=== PATIENT | female | born 1945 | race Caucasian/White ===

== ENCOUNTER 2016-10-10 05:19 | Inpatient (IN) | payer BC ==
[2016-10-07 17:45] LABS: BASOPHILS 0.3 %; BASOPHILS ABSOLUTE 0.02 10/3/uL (0.0-0.16); EOSINOPHILS 2.9 %; EOSINOPHILS ABSOLUTE 0.19 10/3/uL (0.0-0.53); HEMATOCRIT 41.2 % (36.0-48.0); IMMATURE GRANULOCYTES 0.2 %; IMMATURE GRANULOCYTES ABSOLUTE 0.01 10/3/uL (0.0-0.11); LYMPHOCYTES 34.1 %; LYMPHOCYTES ABSOLUTE 2.22 10/3/uL (0.67-4.30); MEAN CORPUSCULAR HEMOGLOB 31.8 pg (26.0-34.0); MEAN CORPUSCULAR VOLUME 93.6 fL (80-100); MEAN PLATELET VOLUME 11.6 fL (9.2-13.0); MONOCYTES 9.1 %; MONOCYTES ABSOLUTE 0.59 10/3/uL (0.21-1.20); NEUTROPHILS 53.4 %; NEUTROPHILS ABSOLUTE 3.48 10/3/uL (2.02-8.40); PLATELET COUNT 251 10/3/uL (150-400); RBC DISTRIBUTION WIDTH 13.1 % (12.0-16.0); WHITE BLOOD CELLS 6.5 10/3/uL (4.5-10.5)
[2016-10-07 17:46] LABS: MANUAL DIFF NO %
[2016-10-07 17:54] LABS: PROTIME (NOT ORD) 13.2 SEC (12.0-14.5)
[2016-10-07 18:04] LABS: A/G RATIO 1.4 (0.7-1.9); ALBUMIN 4.1 G/DL (3.5-5.0); ALKALINE PHOSPHATASE 66 U/L (45-117); BUN (BLOOD UREA NITROGEN) 13 MG/DL (6-23); CALCIUM, SERUM 9.5 MG/DL (8.5-10.4); CHLORIDE, SERUM 103 MMOL/L (96-112); CO2 (CARBON DIOXIDE) 29 MMOL/L (24-34); CREATININE 0.54 MG/DL (0.55-1.02); GFR AFRICAN AMERICAN 110 ML/MIN (>=60); GFR NON AFRICAN AMERICAN 95 ML/MIN (>=60); GLOBULIN 2.9 G/DL (2.5-4.1); GLUCOSE, SERUM 52 MG/DL (60-99); POTASSIUM, SERUM 3.7 MMOL/L (3.5-5.3); SGOT(AST) 20 U/L (5-40); SGPT(ALT) 27 U/L (5-65); SODIUM, SERUM 141 MMOL/L (135-148); TOTAL BILIRUBIN 0.5 MG/DL (0-1.2)
[2016-10-07 18:05] LABS: ASCORBIC ACID (UR NOT ORDER) NEG (NEG); BILIRUBIN, URINE NEGATIVE (NEG); KETONE, URINE NEGATIVE (NEG); LEUKOCYTE ESTERASE(NOT OR LARGE (NEG); WBC (NOT ORDERED) (RFLEX) 16 (0-5)
--- NOTE | ~2016-10-10 | OP ---
Record Of Operation [facility] [address] [place]. [address] NAME: MAIN BRAR : 45 STATUS : ADM IN [facility]#: [id number] AGE: 71 ADM/REG DATE : 10/10/16 MR#: [id number] REPORT SERV DATE: 10/11/16 DICTATED BY: AURY SILVA DATE: 10/10/16 REPORT STATUS : Draft TRANSCRIBED BY: MODDarian DATE: 10/10/16 DATE OF PROCEDURE: 10/10/2016 PREOPERATIVE DIAGNOSIS: Severe left knee degenerative joint disease. POSTOPERATIVE DIAGNOSIS: Severe left knee degenerative joint disease. OPERATION: Left posterior stabilized total knee replacement, cemented. SIDE: Left side. SIZE: See chart. ANESTHESIA: See chart. ESTIMATED BLOOD LOSS: About 10 mL. TOURNIQUET TIME: Approximately 1 hour and 10 minutes. COMPLICATIONS: None. SPECIMENS: Articular surfaces. PROCEDURE: The patient was appropriately identified and marked. The operative side agreed with the consent form and it was checked by all members of the surgical team. The patient was taken to the operating room and anesthesia was induced per the anesthesiologist. The patient was carefully transferred to the operating table without incident. The patient received appropriate prophylactic antibiotics and a Hou catheter was placed in the standard sterile technique. The patient was then carefully positioned, padded, prepped and draped in the normal sterile fashion. The operative leg had been appropriately identified and checked by all members of the operating team against the consent form and found to be the correct limb. The patient's lower extremity was then exsanguinated with an Timmy wrap and a tourniquet was inflated to 350 mm/Hg. Sharp dissection was carried out through a straight midline longitudinal incision and electrocautery through the fat. Sharp quad splitting approach was carried out between about the medial 10 percent of the tendon and the lateral 90 percent of the tendon and down around the medial aspect of the patella and then 1 cm medial to the tibial tubercle. The patella was carefully everted and the posterior fat pad was excised and gentle MCL elevation was carried out off the proximal medial tibia subperiosteally. IM guide was placed in the distal femur after using the appropriate drill. The distal femoral cutting guide was held with 2 pins and the distal cut made. Meniscal fragments and the ACL and the PCL were excised with electrocautery, carefully staying anterior to the posterior fat pad. The proximal tibial alignment guide was set appropriately and the proximal tibial cut made. Spacer block verified full extension with excellent mediolateral balance. Sizing guide was used to place 2 drill holes in the distal femur and the four-in-one cutting block was then placed, impacted and checked Record Of Operation [facility] [address] [place]. [address] NAME: MAIN BRAR : 45 STATUS : ADM IN PAT#: [id number] AGE: 71 ADM/REG DATE : 10/10/16 MR#: [id number] REPORT SERV DATE: 10/11/16 DICTATED BY: AURY SILVA DATE: 10/10/16 REPORT STATUS : Draft TRANSCRIBED BY: LINDA DATE: 10/10/16 to be sure it would not notch with an patria wing and it was held with 2 pins. The anterior cut, posterior cut, anterior chamfer and posterior chamfer cuts were made. The pins were removed and the block was removed. A posterior release was carried out with a curved 3/4 inch osteotome staying right on the bone posteriorly. The box-cut guide was then placed, impacted and held with 2 pins and a reciprocating saw was used to cut out the box. With the trial components in place, there was excellent medial/lateral balance. The patella was then measured with a caliper, cut first with an oscillating saw and then reamed with a patella reamer. With the trial patella in place, there was excellent patellar tracking. Rotation was marked on the tibia and the tibia prepared with a drill and stamp chisel. All surfaces were then copiously irrigated with pulsatile lavage, carefully dried and then vacuum-mixed cement was pressurized with a cement gun in a doughy phase. The tibial component was placed, impacted and excess cement was removed. The cement was then pressurized in the femur and placed on the posterior runners of the femoral component, which was placed, impacted and excess cement removed and the knee was brought out into extension on a trial spacer. The cement was then pressurized in the patella. Patellar component was then placed, clamped and excess cement was removed. Once all cement was hardened, the knee was taken through range of motion. Further extruded cement was removed with a small osteotome. Then based on the trial inserts, we decided on the actual insert, which was placed in the standard fashion and held with a locking mechanism. The knee was then copiously irrigated and then closed in a layered fashion over a medium Hemovac drain superolaterally with interrupted #1 in the deep fascia, 2-0 subcutaneous and roberta in the skin. The wounds were dressed sterilely and the tourniquet was deflated. The patient was then awakened and taken to the postanesthesia care unit without incident. All counts were correct at the end of the case. LISY/LINDA Sriniavs Silva M.D. / [id number] CC: Srinivas Silva M.D.
[~2016-10-10 05:19] MED LIST: AMLODIPINE/VALSARTAN; CLARIT10 PO; CO Q-10100 MG PO; EFFEX75 PO; GLUCOPHXR7 PO; LEVOTHYROXIN50 MCG PO; LIPITOR20 PO; MOBIC15 MG PO; NEUR100 PO; PRILOSEC40 MG PO
[2016-10-11 06:35] LABS: HEMATOCRIT 28.2 % (36.0-48.0); HEMOGLOBIN 9.6 g/dL (12.0-16.0)
[2016-10-11 06:42] LABS: INTERNATIONAL NORMAL RATI 1.2 UNITS (-); PROTIME (NOT ORD) 14.7 SEC (12.0-14.5)
[2016-10-11 07:01] LABS: BUN (BLOOD UREA NITROGEN) 15 MG/DL (6-23); CALCIUM, SERUM 9.1 MG/DL (8.5-10.4); CHLORIDE, SERUM 105 MMOL/L (96-112); CO2 (CARBON DIOXIDE) 26 MMOL/L (24-34); CREATININE 0.58 MG/DL (0.55-1.02); GFR AFRICAN AMERICAN 107 ML/MIN (>=60); GFR NON AFRICAN AMERICAN 93 ML/MIN (>=60); GLUCOSE, SERUM 114 MG/DL (60-99); POTASSIUM, SERUM 3.9 MMOL/L (3.5-5.3); SODIUM, SERUM 141 MMOL/L (135-148)
[2016-10-11] MEDS ORDERED: C5 PO (14:05)
[2016-10-11] MEDS ORDERED: NORCO1 TA1 PO (14:05)
[2016-10-11] MEDS ORDERED: ZOFRAN4 PO (14:05)
== END 2016-10-11 14:40 | disposition home or self-care (01) | DRG 470 ==
LOC: SDC/OF 05:19 → PACU 10:04 → 3SO 11:31
PROVIDERS: Specialist
PROC: 0SRD0J9 Replacement of Left Knee Joint with Synthetic Substitute, Cemented, Open Approach (ICD-10-PCS; principal; 2016-10-10 06:45)
DX: M17.12 Unilateral primary osteoarthritis, left knee (principal); E11.9 Type 2 diabetes mellitus without complications; I10 Essential (primary) hypertension; E78.00 Pure hypercholesterolemia, unspecified; K21.9 Gastro-esophageal reflux disease without esophagitis; E03.9 Hypothyroidism, unspecified
CPT/HCPCS: 36415; 71020-PO; 80048; 80053; 81001; 82962; 85014; 85018; 85025; 85610; 87086; 87641; 88305; 88311; 93005; 97110-GP; 97116-GP; 97161-GP; 97165-GO; A9270-GY; C1776; J0690; J1885; J2250; J2274; J2405; J2795; J3010